=== PATIENT | female | born 1980 | race Caucasian/White ===

== ENCOUNTER → 2016-12-30 | Outpatient (REF) | payer OTHER | LOC: M SFHCWAGY 15:42 | PROVIDERS: ATTEND Family Medicine | DX: Z11.3 Encounter for screening for infections with a predominantly sexual mode of transmission (principal) ==

== ENCOUNTER → 2017-01-31 | Outpatient (CLI) | payer OTHER ==
--- NOTE | 2017-01-31 16:30 | REP ---
Supine abdomen, two AP views: There are no comparisons. There are surgical clips in the abdominal right upper quadrant. There is an IUD in the pelvis. There are numerous pelvic calcifications, likely phleboliths. There is a large volume of fecal residue throughout the ascending colon, transverse colon, descending colon and rectosigmoid colon, compatible with the clinical history. There is no bowel obstruction. There is lumbar scoliosis convex left. Skeletal structures and soft tissues otherwise are unremarkable. Signed by Bryan Crews MD 01/31/2017 04:22 P
== END ==
LOC: M CLY 15:44
PROVIDERS: ATTEND Nurse Practitioner
DX: K59.00 Constipation, unspecified (principal); Z97.5 Presence of (intrauterine) contraceptive device

== ENCOUNTER → 2017-07-21 | Outpatient (CLI) | payer OTHER ==
--- NOTE | 2017-07-21 12:49 | REP ---
MAXILLOFACIAL CT WITHOUT CONTRAST: HISTORY: Chronic rhinitis. Bilateral Sea cells are present. Mild mucosal thickening is present in the left maxillary sinus. Minimal mucosal thickening is present in the right ethmoid and maxillary sinuses. The remaining sinuses are clear. The osteomeatal units are patent. The middle and inferior nasal turbinates are partially paradoxical. The nasal septum is midline. The cribriform plate, medial mcgregor of the orbits and optic canals are intact. The carotid canals form a segment of the posterolateral wall of the sphenoid sinus. IMPRESSION: Sinus mucosal thickening as described above. Signed by Doyle Jones MD 07/21/2017 01:13 P
== END ==
LOC: M RAD 10:30
PROVIDERS: ATTEND Physician Assistant Medical
DX: J31.0 Chronic rhinitis (principal)

== ENCOUNTER → 2017-08-04 | Outpatient (CLI) | payer OTHER ==
[2017-08-04 18:42] LABS: BASO % 0.4 % (0.0-1.0); EOS # 0.1 10^3/uL (0.0-0.50); EOS % 1.3 % (0.0-3.0); IMMATURE GRANULOCYTE % 0.2 % (0-0); LYMPH # 1.7 10^3/uL (1.5-4.5); LYMPH % 20.9 % (24.0-44.0); MEAN CORPUSCULAR HEMOGLOBIN 28.9 pg (27.0-33.0); MEAN CORPUSCULAR HGB CONC 32.9 g/dl (32.0-36.5); MEAN CORPUSCULAR VOLUME 87.7 fl (80.0-96.0); MONO # 0.5 10^3/uL (0.0-0.8); MONO % 5.6 % (0.0-5.0); NEUTROPHILS # 5.9 10^3/uL (1.8-7.7); NEUTROPHILS % 71.6 % (36.0-66.0); PLATELET COUNT, AUTOMATED 333 10^3/uL (150-450); RED CELL DISTRIBUTION WIDTH 12.2 % (11.5-14.5); WHITE BLOOD COUNT 8.2 10^3/uL (4.0-10.0)
[2017-08-04 19:11] LABS: IMMUNOGLOBULIN G 1100 MG/DL (681-1648); IMMUNOGLOBULIN M 132 MG/DL (40-230)
[2017-08-07 14:13] LABS: ANTI TETANUS ANTIBODY 1.11 IU/mL (<0.10)
[2017-08-09 00:06] LABS: IgG SERUM (part of Subclasses) 1040 mg/dL (700-1600); IgG Subclass 1 741 mg/dL (248-810); IgG Subclass 2 116 mg/dL (130-555); IgG Subclass 3 96 mg/dL (15-102); IgG Subclass 4 12 mg/dL (2-96)
[2017-08-09 14:15] LABS: IMMUNOGLOBULIN D <0.12 mg/dL (<14.11); STREP PNEUMO TYPE 12F 0.1 ug/mL (>1.3); STREP PNEUMO TYPE 18C <0.1 ug/mL (>1.3); STREP PNEUMO TYPE 19A 2.2 ug/mL (>1.3); STREP PNEUMO TYPE 19F 3.1 ug/mL (>1.3); STREP PNEUMO TYPE 23F 0.2 ug/mL (>1.3); STREP PNEUMO TYPE 6B <0.1 ug/mL (>1.3); STREP PNEUMO TYPE 7F 0.5 ug/mL (>1.3); STREP PNEUMO TYPE 9N 0.4 ug/mL (>1.3); STREP PNEUMO TYPE 9V 0.2 ug/mL (>1.3)
== END ==
LOC: M SMT 14:28
PROVIDERS: ATTEND Allergy & Immunology Allergy
DX: J30.89 Other allergic rhinitis (principal); D84.9 Immunodeficiency, unspecified

== ENCOUNTER → 2017-11-03 | Outpatient (CLI) | payer OTHER ==
[2017-11-09 00:06] LABS: STREP PNEUMO TYPE 1 0.8 ug/mL (>1.3); STREP PNEUMO TYPE 12F 8.1 ug/mL (>1.3); STREP PNEUMO TYPE 14 44.3 ug/mL (>1.3); STREP PNEUMO TYPE 18C 0.5 ug/mL (>1.3); STREP PNEUMO TYPE 19A 9.9 ug/mL (>1.3); STREP PNEUMO TYPE 19F 4.8 ug/mL (>1.3); STREP PNEUMO TYPE 23F 0.9 ug/mL (>1.3); STREP PNEUMO TYPE 3 0.3 ug/mL (>1.3); STREP PNEUMO TYPE 4 0.2 ug/mL (>1.3); STREP PNEUMO TYPE 6B 0.4 ug/mL (>1.3); STREP PNEUMO TYPE 7F 1.7 ug/mL (>1.3); STREP PNEUMO TYPE 8 2.1 ug/mL (>1.3); STREP PNEUMO TYPE 9N 5.4 ug/mL (>1.3); STREP PNEUMO TYPE 9V 8.9 ug/mL (>1.3)
== END ==
LOC: M SMT 12:03
DX: J32.9 Chronic sinusitis, unspecified (principal)
CPT/HCPCS: 86609

== ENCOUNTER → 2018-01-19 | Outpatient (REF) | payer OTHER | LOC: M SFHCWAGY 10:39 | DX: Z12.4 Encounter for screening for malignant neoplasm of cervix (principal); Z11.3 Encounter for screening for infections with a predominantly sexual mode of transmission ==

== ENCOUNTER → 2018-08-03 | Outpatient (REF) | payer OTHER | LOC: M LAB REF 13:35 | DX: J02.9 Acute pharyngitis, unspecified (principal) ==

== ENCOUNTER → 2019-01-25 | Outpatient (REF) | payer OTHER | LOC: M SFHCWAGY 13:43 | PROVIDERS: ATTEND Family Medicine | DX: Z12.4 Encounter for screening for malignant neoplasm of cervix (principal) ==

== ENCOUNTER → 2019-02-05 | Outpatient (REF) | payer OTHER | LOC: M LAB REF 16:51 | PROVIDERS: ATTEND Physician Assistant Medical | DX: N39.0 Urinary tract infection, site not specified (principal) ==

== ENCOUNTER → 2019-03-05 | Outpatient (REF) | payer OTHER ==
[2019-03-05 17:57] LABS: APPEARANCE, URINE CLOUDY (CLEAR); BACTERIA, URINE AUTO 1+ (NEGATIVE); BILIRUBIN, URINE AUTO NEGATIVE (NEGATIVE); BLOOD, URINE BLOOD 2+ (NEGATIVE); COLOR, URINE YELLOW (YELLOW); GLUCOSE, URINE (UA) AUTO NEGATIVE (NEGATIVE); KETONE, URINE AUTO NEGATIVE (NEGATIVE); LEUKOCYTE ESTERASE, URINE AUTO 2+ (NEGATIVE); MUCUS, URINE SMALL (NEGATIVE); NITRITE, URINE AUTO NEGATIVE (NEGATIVE); PROTEIN, URINE AUTO 1+ mg/dL (NEGATIVE); RBC, URINE AUTO 29 /HPF (0-3); SPECIFIC GRAVITY URINE AUTO 1.019 (1.002-1.035); SQUAMOUS EPITHELIAL CELL UR AU 26 /HPF (0-6); UROBILINOGEN, URINE AUTO 0.2 mg/dL (0.0-2.0); WBC, URINE AUTO TNTC /HPF (0-3)
== END ==
LOC: EEVIPCON 16:43 → M LAB REF 16:43
PROVIDERS: ATTEND Physician Assistant Medical
DX: N39.0 Urinary tract infection, site not specified (principal)

== ENCOUNTER → 2019-05-07 | Outpatient (CLI) | payer OTHER ==
--- NOTE | 2019-05-08 02:25 | REP ---
Clinical: Lumbar back pain . Technique: AP, lateral,and coned-down views. Findings: Alignment and lordosis is maintained. The vertebral bodies including transverse process and spinous processes are intact and normal. There is no evidence for acute fracture / compression injury or subluxation. No evidence for spondylolysis or spondylolisthesis. No significant degenerative change is noted. Impression: Normal lumbosacral spine radiograph series. Electronically Signed by Tahir Dsouza MD 05/08/2019 02:16 A
== END ==
LOC: M RAD 13:49
PROVIDERS: ATTEND Family Medicine
DX: M54.5 Low back pain (principal)

== ENCOUNTER → 2019-06-20 | Outpatient (CLI) | payer OTHER ==
--- NOTE | 2019-06-21 08:16 | REP ---
CT paranasal sinuses: 06/20/2019. Indication: Sinusitis. Comparison: 07/21/2017. Technique: Unenhanced axial images of the paranasal sinuses were performed without IV IV contrast. Coronal reconstructions were provided. Findings: No air-fluid levels or frothy secretions are present within the paranasal sinuses. The sinonasal passageways are patent. There is minimal mucosal thickening within the anterior ethmoid air cells. There are periapical lucencies noted involving the left second maxillary molar without cortical breakthrough or adjacent soft tissue inflammatory changes. Unerupted teeth is noted within the anterior right maxilla as well. The mastoid air cells are clear. No significant ocular, intraorbital or intracranial abnormalities are detected. Impression: No significant paranasal sinus mucosal disease by CT evaluation. Electronically Signed by Jaycob Dangelo DO 06/21/2019 08:08 A
== END ==
LOC: M RAD 17:27
PROVIDERS: ATTEND Otolaryngology
DX: J32.0 Chronic maxillary sinusitis (principal)

== ENCOUNTER → 2020-06-16 | Outpatient (CLI) | payer OTHER ==
--- NOTE | 2020-06-17 13:06 | REP ---
INDICATION: NASAL CONGESTION. Chronic maxillary sinus sinus. COMPARISON: Comparison study June 20, 2019.. TECHNIQUE: Helical scanning is acquired and axial 3 mm images were reformatted. Coronal multiplanar reformations images are generated. FINDINGS: Digital preliminary mushroom spawn maker views are unremarkable. The maxillary sinuses are clear. Ethmoid, sphenoid, and frontal sinuses are clear as well. Mastoid aeration is unchanged and clear. Sinus and orbital margins are intact. Zygomatic arches are intact. Middle ear cavities are aerated bilaterally. Bony nasal septum is midline. Nasal turbinates soft tissues are symmetric. No evidence of nasal polyp. Ostiomeatal complexes are patent bilaterally. IMPRESSION: Negative paranasal sinus CT study. No mucosal disease evident. <Electronically signed by Koby Huber > 06/17/20 [id number]
== END ==
LOC: M RAD 17:31
PROVIDERS: ATTEND Otolaryngology
DX: R09.81 Nasal congestion (principal)

== ENCOUNTER → 2020-07-14 | Outpatient (REF) | payer OTHER ==
[2020-07-14 17:19] LABS: APPEARANCE, URINE CLEAR (CLEAR); BACTERIA, URINE AUTO NEGATIVE (NEGATIVE); BILIRUBIN, URINE AUTO NEGATIVE (NEGATIVE); BLOOD, URINE BLOOD NEGATIVE (NEGATIVE); COLOR, URINE YELLOW (YELLOW); GLUCOSE, URINE (UA) AUTO NEGATIVE (NEGATIVE); KETONE, URINE AUTO NEGATIVE (NEGATIVE); LEUKOCYTE ESTERASE, URINE AUTO NEGATIVE (NEGATIVE); MUCUS, URINE SMALL (NEGATIVE); NITRITE, URINE AUTO NEGATIVE (NEGATIVE); PROTEIN, URINE AUTO NEGATIVE (NEGATIVE); RBC, URINE AUTO 0 /HPF (0-3); SPECIFIC GRAVITY URINE AUTO 1.021 (1.002-1.035); SQUAMOUS EPITHELIAL CELL UR AU 0 /HPF (0-6); UROBILINOGEN, URINE AUTO 0.2 mg/dL (0.0-2.0); WBC, URINE AUTO 0 /HPF (0-3)
== END ==
LOC: M SMT 16:46
PROVIDERS: ATTEND Urology
DX: R39.15 Urgency of urination (principal)

== ENCOUNTER → 2020-07-29 | Outpatient (CLI) | payer OTHER ==
--- NOTE | 2020-07-30 08:21 | REP ---
INDICATION: URGENCY OF URINATION. COMPARISON: Pelvic ultrasound dated 06/26/2009. TECHNIQUE: Transabdominal, endovaginal and Doppler ultrasound. FINDINGS: The bladder is adequately distended. The uterus is anteverted and normal size measuring 7.9 x 4.5 x 6.0 cm. The endometrium measures 44.3 mm thickness and is not thickened. There is an IUD within the endometrial canal seen to best advantage on the transabdominal images. Right ovary: Right ovary is normal size measuring 3.7 x 2.1 x 3.8 cm. There is no dominant mass or cyst. There is vascular flow with color Doppler assessment. Left ovary: The left ovary is normal size measuring 2.6 x 1.7 x 2.2 cm. There is no dominant mass or cyst. There is vascular flow with color Doppler imaging. The examination is technically difficult because of bowel gas. IMPRESSION: Essentially negative pelvic ultrasound. There is an IUD within the endometrial canal. <Electronically signed by Bryan Crews > 07/30/20 [id number]
== END ==
LOC: M RAD 15:51
PROVIDERS: ATTEND Urology
DX: R39.15 Urgency of urination (principal)

== ENCOUNTER 2020-11-12 21:35 | Emergency (ER) | payer OTHER ==
[~2020-11-12] VITALS: Ht 162.6 cm; Wt 79.2 kg
[2020-11-12] MEDS ORDERED: OXYB5TAB10 PO (21:43)
[2020-11-12] MEDS ORDERED: OMEP20TA18 PO (21:43)
[2020-11-12] MEDS ORDERED: CETI10CH PO (21:43)
[2020-11-12] MEDS ORDERED: FAMO20TA PO (21:43)
[2020-11-12 22:13] LABS: BASO % 0.5 % (0.0-1.0); EOS # 0.2 10^3/uL (0.0-0.5); EOS % 2.5 % (0.0-3.0); HEMATOCRIT 41.8 % (36.0-47.0); LYMPH # 2.4 10^3/uL (1.5-5.0); MEAN CORPUSCULAR HEMOGLOBIN 29.2 pg (27.0-33.0); MEAN CORPUSCULAR HGB CONC 33.5 g/dl (32.0-36.5); MEAN CORPUSCULAR VOLUME 87.3 fl (80.0-96.0); MONO # 0.6 10^3/uL (0.0-0.8); MONO % 7.2 % (2.0-8.0); NEUTROPHILS # 5.2 10^3/uL (1.5-8.5); NEUTROPHILS % 61.3 % (36.0-66.0); PLATELET COUNT, AUTOMATED 348 10^3/uL (150-450); RED BLOOD COUNT 4.79 10^6/uL (4.00-5.40); WHITE BLOOD COUNT 8.4 10^3/uL (4.0-10.0)
[2020-11-12 22:39] LABS: ALBUMIN 4.4 GM/DL (3.2-5.2); ALT/SGPT 24 U/L (12-78); BILIRUBIN,DIRECT 0.1 MG/DL (0.0-0.2); BILIRUBIN,TOTAL 0.4 MG/DL (0.2-1.0); BLOOD UREA NITROGEN 12 MG/DL (7-18); CALCIUM LEVEL 8.8 MG/DL (8.5-10.1); CARBON DIOXIDE LEVEL 30 MEQ/L (21-32); CHLORIDE LEVEL 103 MEQ/L (98-107); CREATININE FOR GFR 0.77 MG/DL (0.55-1.30); GLOMERULAR FILTRATION RATE > 60.0 (>60); GLUCOSE, FASTING 100 MG/DL (70-100); LIPASE 127 U/L (73-393); SODIUM LEVEL 140 MEQ/L (136-145); TOTAL PROTEIN 7.5 GM/DL (6.4-8.2)
[2020-11-12] MEDS ORDERED: DICYCLOMINE INJ 20MG/2ML (J0500) IM ONE (23:15)
[2020-11-12] MEDS ORDERED: DICY20TA11 PO (23:17)
--- NOTE | 2020-11-12 23:39 | REPVR ---
PROCEDURE INFORMATION: Exam: XR Complete Acute Abdomen Series Exam date and time: 11/12/2020 10:51 PM Age: 40 years old Clinical indication: Other: Sbo TECHNIQUE: Imaging protocol: XR complete acute abdomen series, including 2 or more views of the abdomen and a single view chest. COMPARISON: CR ABDOMEN 1 VIEW (KUB) 01/31/2017 3:58 PM FINDINGS: Lungs: Normal. No consolidation. Pleural spaces: Normal. No pleural effusions. No pneumothorax. Heart/Mediastinum: Normal. No cardiomegaly. Gastrointestinal tract: Moderate amount of fecal material in the colon. No dilated bowel loops. No bowel obstruction. Intraperitoneal space: Normal. No free air. Organs: There is an IUD in the pelvis. Vasculature: Scattered phleboliths in the pelvis. Bones/joints: Mild thoracolumbar scoliosis. Soft tissues: Normal. IMPRESSION: Constipation. Nonobstructive bowel gas pattern. Electronically signed by: Jarad Rosa On 11/12/2020 23:39:16 PM
[2020-11-13 00:10] VITALS: BP 131/65
== END 2020-11-12 23:30 | disposition home or self-care (01) ==
LOC: M ED 21:35
DX: R10.9 Unspecified abdominal pain (principal); R14.0 Abdominal distension (gaseous); K59.00 Constipation, unspecified; K21.9 Gastro-esophageal reflux disease without esophagitis; K58.9 Irritable bowel syndrome, unspecified; Z87.891 Personal history of nicotine dependence; Z88.0 Allergy status to penicillin; Z79.899 Other long term (current) drug therapy
CPT/HCPCS: 36415; 74021; 80048; 80076; 83690; 84702; 85025; 96372; 99283; J0500

== ENCOUNTER → 2020-12-01 | Outpatient (REF) | payer OTHER ==
[~2020-12-01] MED LIST: CETI10CH PO; DICY20TA11 PO; FAMO20TA PO; OMEP20TA18 PO; OXYB5TAB10 PO
== END ==
LOC: M SFHCCLAY 08:45
PROVIDERS: ATTEND Family Medicine
DX: R53.83 Other fatigue (principal)

== ENCOUNTER → 2021-03-08 | Outpatient (CLI) | payer OTHER | LOC: M LABSMTC 09:26 | PROVIDERS: ATTEND Anesthesiology | DX: Z01.812 Encounter for preprocedural laboratory examination (principal); Z20.822 Contact with and (suspected) exposure to COVID-19 ==

== ENCOUNTER 2021-03-12 11:28 | Day surgery (SDC) | payer OTHER ==
[~2021-03-12] VITALS: Ht 162.6 cm; Wt 75.7 kg
[~2021-03-12 11:28] MED LIST changes: +NS 1,000 ML IV ONE
[2021-03-12] MEDS ORDERED: propofoL 200 MG/20 ML VIAL As Ordered ONE (13:05)
[2021-03-12] MEDS ORDERED: LIDOCAINE 2% 100MG/5ML SDV (FOR ANES.) As Ordered ONE ×2 (13:05→14:06)
[2021-03-12] MEDS ORDERED: fentaNYL 100 MCG/2 ML INJECTION (J3010) As Ordered ONE (13:05)
[2021-03-12] MEDS ORDERED: SIMETHICONE 40MG/0.6ML DROPS 30ML As Ordered ONE (13:05)
--- NOTE | 2021-03-12 13:37 | ROOR ---
Patient Name: Becky Karimi Procedure Date: 03/12/2021 1:21 PM Date of : 1980 Age: 40 Room: [facility] Gender: Female Note Status: Finalized Procedure: Upper GI endoscopy Indications: Dyspepsia, Heartburn Providers: Hermes Mai MD Referring MD: Rosana STANLEY DO Requesting Provider: Medicines: Monitored Anesthesia Care Complications: No immediate complications. Procedure: Pre-Anesthesia Assessment: - The heart rate, respiratory rate, oxygen saturations, blood pressure, adequacy of pulmonary ventilation, and response to care were monitored throughout the procedure. The Endoscope was introduced through the mouth, and advanced to the second part of duodenum. The upper GI endoscopy was accomplished without difficulty. The patient tolerated the procedure well. Findings: The examined esophagus was normal. Small Hiatal Hernia. The entire examined stomach was normal. The examined duodenum was normal. Impression: - Normal esophagus. - Small Hiatal Hernia. - Normal stomach. - Normal examined duodenum. - No specimens collected. Recommendation: - Observe patient's clinical course. - Continue present medications. - Follow an antireflux regimen. Procedure Code(s): --- Professional --- 59474, Esophagogastroduodenoscopy, flexible, transoral; diagnostic, including collection of specimen(s) by brushing or washing, when performed (separate procedure) Diagnosis Code(s): --- Professional --- R12, Heartburn R10.13, Epigastric pain CPT copyright 2019 [employer]. All rights reserved. The codes documented in this report are preliminary and upon death surveys coder review may be revised to meet current compliance requirements. Hermes Mai MD Hermes Mai MD 03/12/2021 1:37:07 PM Electronically signed by Hermes Mai MD Number of Addenda: 0 Note Initiated On: 03/12/2021 1:21 PM Estimated Blood Loss: Estimated blood loss: none.
--- NOTE | 2021-03-12 13:55 | ROOR ---
Patient Name: Becky Karimi Procedure Date: 03/12/2021 1:23 PM Date of : 1980 Age: 40 Room: [facility] Gender: Female Note Status: Finalized Procedure: Colonoscopy Indications: Generalized abdominal pain, Change in bowel habits, Constipation Providers: Hermes Mai MD Referring MD: Rosana STANLEY DO Requesting Provider: Medicines: Monitored Anesthesia Care Complications: No immediate complications. Procedure: Pre-Anesthesia Assessment: - The heart rate, respiratory rate, oxygen saturations, blood pressure, adequacy of pulmonary ventilation, and response to care were monitored throughout the procedure. The Colonoscope was introduced through the anus and advanced to 10 cm into the ileum. The colonoscopy was performed without difficulty. The patient tolerated the procedure well. The quality of the bowel preparation was good. Findings: The perianal and digital rectal examinations were normal. The colon (entire examined portion) appeared normal. The terminal ileum appeared normal. Small Internal Hemorrhoids. Impression: - The entire colon is normal. - The examined portion of the ileum was normal. - Small Internal Hemorrhoids. - No specimens collected. - (Irritable Bowel Syndrome/IBS-C suspected.) Recommendation: - Use Amitiza (lubiprostone) 24 mcg PO BID. Procedure Code(s): --- Professional --- 36947, Colonoscopy, flexible; diagnostic, including collection of specimen(s) by brushing or washing, when performed (separate procedure) Diagnosis Code(s): --- Professional --- R10.84, Generalized abdominal pain R19.4, Change in bowel habit K59.00, Constipation, unspecified CPT copyright 2019 [employer]. All rights reserved. The codes documented in this report are preliminary and upon career professional review may be revised to meet current compliance requirements. Hermes Mai MD Hermes Mai MD 03/12/2021 1:55:08 PM Electronically signed by Hermes Mai MD Number of Addenda: 0 Note Initiated On: 03/12/2021 1:23 PM Estimated Blood Loss: Estimated blood loss: none.
[2021-03-12 14:26] VITALS: BP 122/78
== END 2021-03-12 14:26 | disposition home or self-care (01) ==
LOC: M OPP 11:28
PROVIDERS: ATTEND Internal Medicine Gastroenterology
DX: K64.8 Other hemorrhoids (principal); K59.00 Constipation, unspecified; K21.9 Gastro-esophageal reflux disease without esophagitis; R10.84 Generalized abdominal pain; K44.9 Diaphragmatic hernia without obstruction or gangrene; R12 Heartburn; F17.201 Nicotine dependence, unspecified, in remission
CPT/HCPCS: 43235; 45378; J3010

== ENCOUNTER → 2022-02-08 | Outpatient (REF) | payer OTHER ==
[~2022-02-08] MED LIST changes: -DICY20TA11 PO; +DICY20TA20 PO; -NS 1,000 ML IV ONE
[2022-02-08 11:50] LABS: HEMATOCRIT 42.1 % (36.0-47.0); MEAN CORPUSCULAR HEMOGLOBIN 29.4 pg (27.0-33.0); MEAN CORPUSCULAR HGB CONC 33.3 g/dl (32.0-36.5); MEAN CORPUSCULAR VOLUME 88.4 fl (80.0-96.0); PLATELET COUNT, AUTOMATED 322 10^3/uL (150-450); RED BLOOD COUNT 4.76 10^6/uL (4.00-5.40); WHITE BLOOD COUNT 8.2 10^3/uL (4.0-10.0)
[2022-02-08 12:32] LABS: FREE T4 1.01 NG/DL (0.76-1.46); THYROID STIMULATING HORMONE 1.84 uIU/ML (0.358-3.740)
== END ==
LOC: M SFHCCLAY 08:08
PROVIDERS: ATTEND Family Medicine
DX: R53.83 Other fatigue (principal)